=== PATIENT | female | born 1960 | race Caucasian/White ===

== ENCOUNTER → 2017-02-21 | Outpatient (CLI) | payer BC, OTHER ==
--- NOTE | 2017-02-21 12:26 | RAD ---
Gastric emptying study: Indication: Reflux. Procedure: Serial static images are obtained over the stomach following oral administration of 2 mCi of 99 M technetium sulfur colloid in a solid meal. Findings: The stomach empties slowly into the small bowel without evidence of reflux in the area the esophagus. The gastric emptying half time is 328 minutes (normal is 66 +/- 22 minutes). Retention 60 minutes is 91%. Impression: Markedly prolonged gastric imaging likely secondary to gastroparesis.
== END | disposition home or self-care (01) ==
LOC: NM 07:14
PROVIDERS: ATTEND Internal Medicine Gastroenterology
DX: K21.9 Gastro-esophageal reflux disease without esophagitis (principal)
CPT/HCPCS: 78264; A9541

== ENCOUNTER → 2017-06-10 | Outpatient (CLI) | payer BC, OTHER ==
[~2017-06-10] VITALS: Ht 177.8 cm; Wt 61.2 kg
[~2017-06-10] MED LIST: PANT40TA3 PO; SINCALIDE 1.22 MCG in IV NORMAL SALINE 50ML 30 ML IV ONE
--- NOTE | 2017-06-10 08:44 | RAD ---
Indication: Epigastric pain and nausea Technique: Grayscale, color Doppler and spectral waveform images of abdomen. Comparison: None Findings: No gallstones. No pericholecystic fluid or gallbladder wall thickening. Visualized pancreas within normal limits. The aorta and IVC are patent. Liver measures 18 cm in clinical dimension with diffusely increased echogenicity and decreased through transmission without apparent focal lesion. Main portal vein is patent with hepatopedal flow. CBD measures 2 mm and is within normal limits. There is a well-circumscribed cystic structure adjacent to the gallbladder measuring 5.3 x 3.2 cm with single internal septation. Right kidney measures 10.3 cm in length without hydronephrosis. There is a 5.0 x 2.6 x 5.8 cm simple appearing interpolar right renal cyst. 2 cm cyst is seen in the inferior pole of the right kidney. Impression: 1. No cholelithiasis or sonographic evidence of acute cholecystitis. 2. Simple appearing right renal cyst without hydronephrosis. 3. Hepatic steatosis. 4. Well-circumscribed cystic structure adjacent to the gallbladder may represent a liver or renal cyst. Nonemergent MRI abdomen recommended for further evaluation.
--- NOTE | 2017-06-10 11:25 | RAD ---
Indication: Epigastric pain and nausea for 6 months. Technique: [facility] medicine HIDA scan with 5.5 mCi of technetium 99m Choletec. Ejection fraction was calculated after infusion of 1.2 mcg of sincalide. Comparison: Ultrasound from the same day Findings: The gallbladder is visualized at 20 minutes and continues to fill in retrograde fashion. Excretion of the biliary agent is seen in the duodenum at 15 minutes. After infusion of cholecystokinin the ejection fraction Ejection fraction calculated is 5.1%. Impression: 1. No evidence of cystic duct obstruction. 2. Abnormal ejection fraction suggests gallbladder dyskinesia.
== END | disposition home or self-care (01) ==
LOC: US 07:36
PROVIDERS: ATTEND Internal Medicine Gastroenterology
DX: K76.0 Fatty (change of) liver, not elsewhere classified (principal); K21.9 Gastro-esophageal reflux disease without esophagitis
CPT/HCPCS: 76705; 78226; 96374; 96375; A9537; J2805

== ENCOUNTER → 2018-04-01 | Outpatient (CLI) | payer BC, OTHER ==
[~2018-04-01] MED LIST changes: +0.9 % SODIUM CHLORIDE 10 ML VIAL ONE; +BUPIVACAINE MPF 0.25% 10 ML VIAL. ONE; +DEXAMETHASONE SOD PHOS 10 MG/ML VIAL ONE; +IOHEXOL 300 MG/ML 50 ML VIAL. ONE; +LIDOCAINE 1% PF 30 ML VIAL. ONE; -SINCALIDE 1.22 MCG in IV NORMAL SALINE 50ML 30 ML IV ONE
== END | disposition home or self-care (01) ==
LOC: SURG 09:07
PROVIDERS: ATTEND Anesthesiology
DX: M54.16 Radiculopathy, lumbar region (principal); Z88.1 Allergy status to other antibiotic agents; Z87.891 Personal history of nicotine dependence; Z72.89 Other problems related to lifestyle; M19.90 Unspecified osteoarthritis, unspecified site; Z90.49 Acquired absence of other specified parts of digestive tract; Z79.899 Other long term (current) drug therapy
CPT/HCPCS: 64483; J1100; J2001; J3490; Q9967; 64484

== ENCOUNTER → 2018-07-22 | Outpatient (CLI) | payer BC, OTHER ==
[~2018-07-22] MED LIST changes: -0.9 % SODIUM CHLORIDE 10 ML VIAL ONE; -BUPIVACAINE MPF 0.25% 10 ML VIAL. ONE; -DEXAMETHASONE SOD PHOS 10 MG/ML VIAL ONE; -IOHEXOL 300 MG/ML 50 ML VIAL. ONE; -LIDOCAINE 1% PF 30 ML VIAL. ONE
== END | disposition home or self-care (01) ==
LOC: SURG 09:05
PROVIDERS: ATTEND Anesthesiology
DX: M47.26 Other spondylosis with radiculopathy, lumbar region (principal)
CPT/HCPCS: 99214

== ENCOUNTER → 2020-08-24 | Outpatient (CLI) | payer BC, OTHER ==
[2020-08-19 08:45] VITALS: BP 155/95
--- NOTE | 2020-08-24 12:42 | RAD ---
INDICATION: Reason: RENAL CYSTS / Spl. Instructions: COMPARE TO PRIOR IMAGING PER REPORT / History: COMPARISON: June 2017 TECHNIQUE: Grayscale and color ultrasound images obtained of the bilateral kidneys and bladder. FINDINGS: Right Kidney: 121 mm. No hydronephrosis. Left Kidney: 100 mm. No hydronephrosis. Multiple bilateral renal cystic lesions are identified. Largest on the right measures 57 x 45 x 35 mm . Largest on the left is 11 x 10 mm. Partial visualization of echogenic liver which can be seen with fatty infiltration. Bladder: Not visualized. Could be from decompression. IMPRESSION: * Bilateral renal cysts are identified with the largest on the right overall grossly similar to prio r examination when allowing for the difference in modality. * Partially visualized liver is echogenic. Nonspecific but can be seen with fatty infiltration. Electronically signed by: Guerrero Bragg MD (08/24/2020 12:40 PM) [id number]
== END ==
LOC: US 10:43
PROVIDERS: ATTEND Family Medicine
DX: K76.0 Fatty (change of) liver, not elsewhere classified (principal); N28.1 Cyst of kidney, acquired
CPT/HCPCS: 76770

== ENCOUNTER → 2020-09-16 | Outpatient (CLI) | payer BC, OTHER ==
[2020-09-15 08:45] VITALS: BP 151/98
--- NOTE | 2020-09-16 10:33 | RAD ---
EXAM: Bilateral lower extremity venous Doppler sonogram. HISTORY: Venous insufficiency. Pain. Swelling. TECHNIQUE: Madden scale and color Doppler sonographic evaluation of the bilateral lower extremity veins with spectral waveform analysis was performed. FINDINGS: There is normal color flow, normal compressibility and there are normal spectral waveforms in the common femoral, superficial femoral, popliteal, posterior tibial and greater saphenous veins. The left superficial femoral and popliteal veins are small in caliber and difficult to assess. IMPRESSION: No Doppler evidence of lower extremity deep venous thrombosis, with limited evaluation of the left superficial femoral and popliteal veins due to small vessel caliber. Electronically signed by: Marga Cordero MD (09/16/2020 10:31 AM) [id number]
== END ==
LOC: US 09:31
PROVIDERS: ATTEND Family Medicine
DX: I87.2 Venous insufficiency (chronic) (peripheral) (principal)
CPT/HCPCS: 93970